=== PATIENT | male | born 2000 | race African-American/Black ===

== ENCOUNTER 2021-04-11 14:31 | Emergency (ER) | payer SELFPAY ==
[~2021-04-11] VITALS: Ht 160 cm; Wt 86.1 kg
[2021-04-11] MEDS ORDERED: ONDANSETRON ODT 4 MG TAB.RAPDIS. PO ONE (18:00)
[2021-04-11] MEDS ORDERED: IV NORMAL SALINE 1000ML BAG 1,000 ML IV ONE (18:30)
--- NOTE | 2021-04-11 18:41 | RAD ---
XR CHEST 1V History: Cough. Comparison: None. Technique: Portable AP radiograph of the chest. Findings: The lungs are mildly hypoinflated. Patchy bilateral airspace opacities. No pleural effusion or pneumo thorax. Cardiac silhouette and pulmonary vasculature are within normal limits. Osseous structures and soft tissues are unremarkable. Impression: 1. Patchy bilateral airspace opacities concerning for multifocal pneumonia such as Covid pneumonia. Electronically signed by: Casey Jiménez MD (04/11/2021 6:39 PM) [facility]
--- NOTE | 2021-04-11 18:45 | PHYS DOC ---
Past Medical History Past Medical History: No Pertinent History (GRACE HOBBS APRN) Past Surgical History: Other Additional Past Surgical Histo: SURGERY FOR CLUB FOOT REPAIR-LLE (GRACE HOBBS APRN) Smoking Status: Never Smoker Alcohol Use: None Drug Use: None (GRACE HOBBS APRN) General Adult EDM: Chief Complaint: NAUSEA/VOMITING/DIARRHEA HPI: HPI: Patient is a 21-year-old male who presents to the emergency department for a productive cough with nausea and vomiting that started 1 day ago. Patient reports that his girlfriend's mother is currently being tested for COVID-19. He denies any diarrhea, fever, recent travel, shortness of breath, loss of taste or smell, blood in stools or vomit, urinary symptoms. (GRACE HOBBS APRN) Review of Systems: Review of Systems: 14 body systems of the review of systems have been reviewed. See HPI for pertinent positive and negative responses, otherwise all other systems are negative, nonpertinent or noncontributory (GRACE HOBBS APRN) Heart Score: C/O Chest Pain: No Risk Factors: Risk Factors: DM, Current or recent (<one month) smoker, HTN, HLP, family history of CAD, obesity. Risk Scores: Score 0 - 3: 2.5% MACE over next 6 weeks - Discharge Home Score 4 - 6: 20.3% MACE over next 6 weeks - Admit for Clinical Observation Score 7 - 10: 72.7% MACE over next 6 weeks - Early Invasive Strategies (GRACE HOBBS APRN) Current Medications: Current Medications Medications (Trade) Dose Ordered Sig/Mekhi Start Time Stop Time Status Last Admin Dose Admin Ondansetron HCl (Zofran Odt) 4 mg 1X ONCE 04/11/21 18:00 04/11/21 18:02 DC 04/11/21 18:20 4 MG Sodium Chloride 1,000 ml @ 1,000 mls/hr 1X ONCE 04/11/21 18:30 04/11/21 19:29 04/11/21 18:41 1,000 MLS/HR (GRACE HOBBS APRN) Allergies: Allergies: Allergies Coded Allergies Type Severity Reaction Last Updated Verified No Known Drug Allergies 04/11/21 No (GRACE HOBBS APRN) Physical Exam: PE: Constitutional: Well developed, well nourished, no acute distress, non-toxic appearance. [] HENT: Normocephalic, atraumatic, bilateral external ears normal, oropharynx moist, no oral exudates, nose normal. [] Eyes: PERRL, EOMI, conjunctiva normal, no discharge. [] Neck: Normal range of motion, no tenderness, supple, no stridor. [] Cardiovascular:Heart rate regular rhythm, no murmur [] Lungs & Thorax: Bilateral breath sounds clear to auscultation [] Abdomen: Bowel sounds normal, soft, no tenderness, no masses, no pulsatile masses. [] Skin: Warm, dry, no erythema, no rash. [] Back: Normal range of motion Extremities: No tenderness, no cyanosis, no clubbing, ROM intact, no edema. [] Neurologic: Alert and oriented X 3, normal motor function, normal sensory function, no focal deficits noted. [] Psychologic: Affect normal, judgement normal, mood normal. [] (GRACE HOBBS APRN) Current Patient Data: Labs: Laboratory Tests Test 04/11/21 18:19 Influenza Type A Antigen Negative Influenza Type B Antigen Negative Current Medications Medications (Trade) Dose Ordered Sig/Mekhi Route PRN Reason Start Time Stop Time Status Last Admin Dose Admin Ondansetron HCl (Zofran Odt) 4 mg 1X ONCE PO 04/11/21 18:00 04/11/21 18:02 DC 04/11/21 18:20 Sodium Chloride 1,000 ml @ 1,000 mls/hr 1X ONCE IV 04/11/21 18:30 04/11/21 19:29 04/11/21 18:41 Vital Signs: Vital Signs Date Time Temp Pulse Resp B/P (MAP) Pulse Ox O2 Delivery O2 Flow Rate FiO2 04/11/21 18:21 99 24 119/77 (91) 96 Room Air 04/11/21 17:59 99.8 99.8 (GRACE HOBBS APRN) EKG: EKG: [] (GRACE HOBBS APRN) Radiology/Procedures: Radiology/Procedures: []OCEDURE: PORTABLE CHEST 1V XR CHEST 1V History: Cough. Comparison: None. Technique: Portable AP radiograph of the chest. Findings: The lungs are mildly hypoinflated. Patchy bilateral airspace opacities. No pleural effusion or pneumothorax. Cardiac silhouette and pulmonary vasculature are within normal limits. Osseous structures and soft tissues are unremarkable. Impression: 1. Patchy bilateral airspace opacities concerning for multifocal pneumonia such as Covid pneumonia. Electronically signed by: Casey Jiménez MD (04/11/2021 6:39 PM) [facility] DICTATED and SIGNED BY: CASEY JIMÉNEZ MD DATE: 04/11/21 [id number] (GRACE HOBBS APRN) Course & Med Decision Making: Course & Med Decision Making Pertinent Labs and Imaging studies reviewed. (See chart for details) [] Patient presents to the emergency department today for a productive cough with nausea and vomiting that started yesterday. Patient be tested for influenza and Covid. Due to productive cough, chest x-ray was performed that showed pneumonia, patient be treated with an antibiotic. Patient given IV fluids and Zofran for nausea. He is p.o. challenged in the emergency department. He is tolerating oral intake. Patient's rapid influenza test was negative. Patient was also tested for Covid and he will be notified of those results when they become available in approximately 1 to 2 days. Patient's chest x-ray does show bilateral pneumonia and he will be treated with an an tibiotic. Patient will also be discharged home with nausea medication. He is advised to purchase a pulse oximeter and monitor his oxygen saturations at home. I discussed with patient all findings and diagnostic testing as well as the need to follow-up with PCP for further evaluation and treatment or return to the ER if any new or worsening symptoms. Strict return precautions were also discussed at length. Patient voiced understanding and agreement with the plan. Patient is hemodynamically stable at the time of disposition. (GRACE HOBBS APRN) Course & Med Decision Making Patients Care and treatment plan provided by ER Nurse Practitioner. I was available for consult. Patient's chart reviewed. (JACINTO PINTO DO) Liu Disclaimer: Liu Disclaimer: This electronic medical record was generated, in whole or in part, using a voice recognition dictation system. (GRACE HOBBS APRN) Departure Departure Impression: Primary Impression: Person under investigation for COVID-19 Additional Impression: Pneumonia Qualified Codes: J18.9 - Pneumonia, unspecified organism Disposition: HOME / SELF CARE / HOMELESS Condition: GOOD Referrals: NO PCP (PCP) Patient Instructions: Pneumonia, Adult Additional Instructions: You were seen in the emergency department today for cough with nausea and vomiting. Your rapid influenza test was negative. Your chest x-ray did show bilateral pneumonia and this will be treated with an antibiotic. Please start a nd finish the antibiotic completely. We also tested you for COVID-19 and you will be notified of those results when they become available in approximately 1 to 2 days. Please self isolate until you receive these results. For any pain or fevers you can take Tylenol and/or ibuprofen. For your cough you can take Delsym [id number]. I would advise you to purchase a pulse oximeter and monitor your oxygen saturations at home. Please return to the emergency department if your oxygen saturation drops below 90%. Please follow-up with your primary care provider tomorrow regarding your ER visit. Return to the emergency department if you develop shortness of breath, intractable nausea or vomiting, high fevers refractory to treatment, chest pain, weakness or any new or worsening concerns. Scripts Azithromycin (AZITHROMYCIN TABLET) 250 Mg Tablet 1 PKG PO UD for 5 Days, #6 TAB 0 Refills 2 the first day followed by 1 for days 2-5 Prov: GRACE HOBBS APRN 04/11/21 GRACE HOBBS APRN Apr 11, 2021 18:45 JACINTO PINTO I DO Apr 11, 2021 20:26
[2021-04-11 18:55] LABS: INFLUENZA A PATIENT NEGATIVE (NEGATIVE); INFLUENZA B PATIENT NEGATIVE (NEGATIVE)
[2021-04-11] MEDS ORDERED: AZIT250T6 PO (19:02)
[2021-04-11 19:20] VITALS: BP 111/69
--- NOTE | 2021-04-12 16:48 | NUR ---
IP: Informed pt of positive covid test and the need to quarantine for 10 days. Pt verbalized understanding.
== END 2021-04-11 19:52 | disposition home or self-care (01) ==
LOC: ER 14:31
DX: U07.1 COVID-19 (principal); J18.9 Pneumonia, unspecified organism
CPT/HCPCS: 71045; 87804; 96360; 99284; J7030; U0003; U0005